=== PATIENT | female | born 1970 | race Caucasian/White ===

== ENCOUNTER 2017-05-30 15:54 | Emergency (ER) | payer MEDICAID ==
[~2017-05-30] VITALS: Ht 157.5 cm; Wt 77.0 kg
[2017-05-30 16:02] VITALS: Ht 157.5 cm; Wt 77.0 kg
[2017-05-30] MEDS ORDERED: METOCLOPRAMIDE 10 MG INJ IV STA (21:09)
[2017-05-30] MEDS ORDERED: SOD CHLORIDE 0.9% 1,000 ML IV STA (21:09)
--- NOTE | 2017-05-30 21:13 | ERD ---
ER Documentation Chief Complaint Date/Time DATE: 05/30/17 TIME: 21:10 Chief Complaint Dizziness and "feeling weird"x 1 day after getting meds from dentist HPI Patient is a 47-year-old female who presents with gradual onset, constant, moderate, diffuse headache since midnight last night, approximately 30 minutes after taking a Tylenol with codeine. She reports feeling lightheaded and having multiple episodes of vomiting today. She denies fever, abdominal pain, vertigo, focal weakness or numbness. She reports having a left upper molar extracted under anesthesia yesterday. She taken a total of 2 doses of Tylenol with codeine prior to onset of symptoms. She has not taken any since. ROS All systems reviewed and are negative except as per history of present illness. Medications Home Meds Active Scripts Ibuprofen* (Motrin*) 600 Mg Tab, 600 MG PO Q8, #21 TAB Prov:RJ HURTADO MD 05/30/17 Reported Medications Acetaminophen with Codeine (Acetaminophen-Cod #3 Tablet) 1 Each Tablet, 1 TAB PO TID, #20 TAB 05/30/17 Amoxicillin* (Amoxicillin*) 500 Mg Cap, 500 MG PO TID, #30 CAP 05/30/17 Allergies Allergies: Coded Allergies: No Known Allergy (Unverified , 05/30/17) PMhx/Soc Past medical history: Denies Past surgical history: Dental extraction only Social history: Denies tobacco, alcohol or illicit drugs Last menstrual: May 22 Hx Alcohol Use: No Hx Substance Use: No Hx Tobacco Use: No FmHx Noncontributory Physical Exam Vitals Vital Signs Date Time Temp Pulse Resp B/P Pulse Ox O2 Delivery O2 Flow Rate FiO2 05/30/17 16:02 98.1 108 18 168/101 98 Physical Exam Const: Alert, no acute distress Head: Atraumatic Eyes: Normal Conjunctiva, No pallor, no icterus ENT: Normal External Ears, Nose and Mouth. Mucous membranes moist, No facial swelling, intraoral lesions or discharge, no gingival hyperplasia Neck: Full range of motion..~ No meningismus. Resp: Clear to auscultation bilaterally, No wheezes, no rales Cardio: Regular rate and rhythm, no murmurs Abd: Soft, non tender, non distended. Skin: No petechiae or rashes Back: No midline or flank tenderness Ext: No cyanosis, or edema Neur: Awake and alert, Cranial nerves II through XII intact bilaterally, strength and sensation full in 4 extremities. Psych: Normal Mood and Affect Result Diagram: 05/30/17 2100 05/30/17 2100 Results 24 hrs Laboratory Tests Test 05/30/17 21:00 White Blood Count 11.110^3/ul Red Blood Count 4.6810^6/ul Hemoglobin 14.0g/dl Hematocrit 42.0% Mean Corpuscular Volume 89.7fl Mean Corpuscular Hemoglobin 29.9pg Mean Corpuscular Hemoglobin Concent 33.3g/dl Red Cell Distribution Width 13.1% Platelet Count 79381^3/UL Mean Platelet Volume 10.8fl Neutrophils % 81.6% Lymphocytes % 12.8% Monocytes % 4.8% Eosinophils % 0.1% Basophils % 0.4% Nucleated Red Blood Cells % 0.0/100WBC Neutrophils # 9.110^3/ul Lymphocytes # 1.410^3/ul Monocytes # 0.510^3/ul Eosinophils # 0.010^3/ul Basophils # 0.110^3/ul Nucleated Red Blood Cells # 0.010^3/ul Urine Color GABE Urine Clarity SLIGHTLY CLOUDY Urine pH 5.0 Urine Specific [place] 1.024 Urine Ketones 2+mg/dL Urine Nitrite NEGATIVEmg/dL Urine Bilirubin NEGATIVEmg/dL Urine Urobilinogen NEGATIVEmg/dL Urine Leukocyte Esterase TRACELeu/ul Urine Microscopic RBC 4/HPF Urine Microscopic WBC 5/HPF Urine Squamous Epithelial Cells FEW/HPF Urine Mucus MANY/HPF Urine Hemoglobin 1+mg/dL Urine Glucose NEGATIVEmg/dL Urine Total Protein 1+mg/dl Sodium Level 137mmol/L Potassium Level 4.8mmol/L Chloride Level 99mmol/L Carbon Dioxide Level 28mmol/L Anion Gap 15 Blood Urea Nitrogen 18mg/dl Creatinine 0.64mg/dl Glucose Level 141mg/dl Calcium Level 10.3mg/dl Total Bilirubin 0.2mg/dl Direct Bilirubin 0.00mg/dl Indirect Bilirubin 0.2mg/dl Aspartate Amino Transf (AST/SGOT) 22IU/L Alanine Aminotransferase (ALT/SGPT) 30IU/L Alkaline Phosphatase 85IU/L Total Protein 8.9g/dl Albumin 4.4g/dl Globulin 4.50g/dl Albumin/Globulin Ratio 0.97 Serum HCG, Qualitative NEGATIVE Current Medications Medications (Trade) Dose Ordered Sig/[place] Route PRN Reason Start Time Stop Time Status Last Admin Dose Admin Sodium Chloride (NS) 1,000 ml @ 1,000 mls/hr Q1H STAT IV 05/30/17 21:09 05/30/17 22:08 DC 05/30/17 21:19 Metoclopramide HCl (Reglan) 10 mg ONCE STAT IV 05/30/17 21:09 05/30/17 21:11 DC 05/30/17 21:20 Lorazepam (Ativan) 0.5 mg ONCE ONCE IV 05/30/17 21:30 05/30/17 21:31 DC 05/30/17 21:20 Procedures/MDM EKG read by me: Time 2150, rate 101 Rhythm: Sinus tachycardia [place]: Normal Intervals: Normal ST-T waves: no ischemic changes Ectopy: No Q-waves: No Impression: No evidence of ischemia or arrhythmia MDM: Patient is a 47-year-old female who presents with headache and dizziness in the setting of recent tooth extraction and taking Tylenol with codeine. She also reports several episodes of vomiting. There are no red flags for subarachnoid hemorrhage or meningitis. She has a normal neurological exam and no associated neurological symptoms. She has benign abdominal exam. She is tolerating oral intake in the ER. Labs show no significant abnormalities. EKG is unremarkable. The patient was given IV fluids and Reglan, and states that she feels 100% better. She will be discharged home with a prescription for Motrin, and is advised to stop taking Tylenol with codeine. Departure Diagnosis: Primary Impression: Dizziness Additional Impressions: Vomiting Vomiting type: unspecified Vomiting Intractability: non-intractable Nausea presence: with nausea Qualified Code: R11.2 - Non-intractable vomiting with nausea, unspecified vomiting type Adverse drug reaction Encounter type: initial encounter Qualified Code: T88.7XXA - Adverse effect of drug, initial encounter Headache Headache type: unspecified Headache chronicity pattern: acute headache Intractability: not intractable Qualified Code: R51 - Acute nonintractable headache, unspecified headache type Condition: RJ Rock MD May 30, 2017 21:13
[2017-05-30] MEDS ORDERED: LORAZEPAM 2 MG INJ IV ONE (21:30)
[2017-05-30 21:37] LABS: BASOPHIL # 0.1 10^3/ul (0.0-0.1); BASOPHILS % 0.4 % (0.0-2.0); EOSINOPHILS % 0.1 % (0.0-7.0); LYMPHOCYTES # 1.4 10^3/ul (0.8-2.9); LYMPHOCYTES % 12.8 % (15.0-51.0); MEAN CORPUSCULAR HEMOGLOBIN 29.9 pg (29.0-33.0); MEAN CORPUSCULAR HGB CONC 33.3 g/dl (32.0-37.0); MEAN CORPUSCULAR VOLUME 89.7 fl (82.0-101.0); MEAN PLATELET VOLUME 10.8 fl (7.4-10.4); MONOCYTE # 0.5 10^3/ul (0.3-0.9); MONOCYTES % 4.8 % (0.0-11.0); NEUTROPHIL # 9.1 10^3/ul (1.6-7.5); NEUTROPHILS % 81.6 % (39.0-77.0); PLATELET COUNT 151 10^3/UL (140-415); RED BLOOD COUNT 4.68 10^6/ul (4.20-5.40); RED CELL DISTRIBUTION WIDTH 13.1 % (11.5-14.5); WHITE BLOOD COUNT 11.1 10^3/ul (4.8-10.8)
[2017-05-30] MEDS ORDERED: AMOX500C2 PO (21:50)
[2017-05-30] MEDS ORDERED: ACET1TAB40 PO (21:51)
[2017-05-30 22:12] LABS: ADD UMIC YES; UR ASCORBIC ACID NEGATIVE (NEGATIVE); UR BILIRUBIN (Dip) NEGATIVE (NEGATIVE); UR BLOOD (Dip) 1+ mg/dL (NEGATIVE); UR CLARITY SLIGHTLY CLOUDY (CLEAR); UR COLOR AMBER (YELLOW); UR GLUCOSE (Dip) NEGATIVE (NEGATIVE); UR KETONES (Dip) 2+ mg/dL (NEGATIVE); UR LEUKOCYTE ESTERASE (Dip) TRACE Leu/ul (NEGATIVE); UR MUCUS MANY /HPF (NONE SEEN); UR NITRITE (Dip) NEGATIVE (NEGATIVE); UR RBC 4 /HPF (0-5); UR SPECIFIC GRAVITY (Dip) 1.024 (1.003-1.030); UR SQUAMOUS EPITHELIAL CELL FEW /HPF (FEW); UR TOTAL PROTEIN (Dip) 1+ mg/dl (NEGATIVE); UR UROBILINOGEN (Dip) NEGATIVE (NEGATIVE)
[2017-05-30 22:21] LABS: ALBUMIN 4.4 g/dl (3.3-4.9); ALBUMIN/GLOBULIN RATIO 0.97; BILIRUBIN,INDIRECT 0.2 mg/dl (0-1.1); BILIRUBIN,TOTAL 0.2 mg/dl (0.2-1.3); CALCIUM 10.3 mg/dl (8.4-10.2); CREATININE 0.64 mg/dl (0.44-1.00); POTASSIUM 4.8 mmol/L (3.5-5.1); TOTAL PROTEIN 8.9 g/dl (6.1-8.1)
[2017-05-30] MEDS ORDERED: IBUP-1542 PO (22:59)
[2017-05-30 23:13] VITALS: BP 136/89; PULSE 81; RESP 20
== END 2017-05-30 23:26 | disposition home or self-care (01) ==
LOC: E/R 15:54
DX: R42 Dizziness and giddiness (principal); R11.2 Nausea with vomiting, unspecified; R51 Headache; T39.1X5A Adverse effect of 4-Aminophenol derivatives, initial encounter; T40.2X5A Adverse effect of other opioids, initial encounter
CPT/HCPCS: 36415; 80053; 81001; 84703; 85025; 93005; 96374; 96375; J2060; J2765; J7030; Z7502